=== PATIENT | female | born 1985 | race Hispanic/Latino ===

== ENCOUNTER 2022-06-26 07:40 | Emergency (ER) | payer BC ==
[2022-06-26] MEDS ORDERED: Lidocaine 1% PF 5 ML VIAL ONE ×2 (07:53→08:02)
[2022-06-26] MEDS ORDERED: Boostrix 0.5 ML (Tdap) VIAL (>/=7 yrs of age) ONE (07:56)
[2022-06-26] MEDS ORDERED: HYDROcodone/Acetaminophen 10/325 mg Tablet ONE (08:26)
== END 2022-06-26 08:40 | disposition home or self-care (01) ==
LOC: BURERS 07:40
DX: S61.112A Laceration without foreign body of left thumb with damage to nail, initial encounter (principal); E03.9 Hypothyroidism, unspecified; F17.210 Nicotine dependence, cigarettes, uncomplicated; W23.1XXA Caught, crushed, jammed, or pinched between stationary objects, initial encounter; Z23 Encounter for immunization
CPT/HCPCS: 12001; 90471; 90715